=== PATIENT | male | born 1980 | race Caucasian/White ===

== ENCOUNTER 2024-04-21 04:12 | Emergency (ER) | payer BC, SELFPAY ==
[2024-04-21 04:16] VITALS: BP 160/90; PULSE 68; TEMP 36.4; O2SAT 99; BMI 27.4
--- NOTE | 2024-04-21 04:26 | ED.MALEGU1 ---
HPI - Male Genitourinary General Chief complaint: Urogenital-Male Stated complaint: FLANK PAIN, RIGHT Time Seen by Provider: 04/21/24 04:15 Source: patient Mode of arrival: walk-in Limitations: no limitations History of Present Illness HPI Narrative: 44-year-old male presents for right flank pain which started about an hour and a half ago. He was diagnosed with a kidney stone about 6 months ago and it feels similar. He states he just cannot get comfortable. The pain is severe and continuous in his right flank. Related Data Allergies Allergy/AdvReac Type Severity Reaction Status Date / Time No Known Drug Allergies Allergy Verified 04/21/24 04:22 Review of Systems ROS Narrative A ten point review of systems is negative except as noted above. Exam Narrative Exam Narrative: Nurses note and vital signs reviewed and patient is not hypoxic. General: The patient is pacing when I walk into the room Skin: Warm, dry, pallor noted. There is no rash noted. Head: Normocephalic, atraumatic Eye: Normal conjunctiva, no drainage Ears, Nose, Mouth, and Throat: oral mucosa is moist. Nares patent. Cardiovascular: Regular Rate and Rhythm Respiratory: Patient is in no distress, no accessory muscle use, lungs are clear to auscultation, no wheezing, rales or rhonchi Back: non-tender, no CVA tenderness bilaterally to percussion. GI: Soft and nontender Musculoskeletal: The patient has no evidence of calf tenderness, no pitting edema, symmetrical pulses noted bilaterally Neurological: A&O, normal speech Psychiatric: Cooperative Constitutional Vital Signs, click to edit/add: Last Vital Signs Temp 97.5 F L 04/21/24 04:16 Pulse 68 04/21/24 04:16 Resp 18 04/21/24 04:16 BP 160/90 H 04/21/24 04:16 Pulse Ox 99 04/21/24 04:16 O2 Del Method Room Air 04/21/24 04:16 Course Vital Signs Vital signs: Vital Signs Temperature 97.5 F L 04/21/24 04:16 Pulse Rate 68 04/21/24 04:16 Respiratory Rate 18 04/21/24 04:16 Blood Pressure 160/90 H 04/21/24 04:16 Pulse Oximetry 99 04/21/24 04:16 Oxygen Delivery Method Room Air 04/21/24 04:16 Temperature 97.5 F L 04/21/24 04:16 Pulse Rate 68 04/21/24 04:16 Respiratory Rate 18 04/21/24 04:16 Blood Pressure 160/90 H 04/21/24 04:16 Pulse Oximetry 99 04/21/24 04:16 Oxygen Delivery Method Room Air 04/21/24 04:16 MDM - Male Genitourinary MDM Narrative Medical decision making narrative: 5 mm kidney stone is identified. Urinalysis is pending. He was given IV Zofran and IV morphine and the patient is signed out to Dr. Carpenter at change of shift. Differential Diagnosis Differential diagnosis: Likely other (Muscle strain, kidney stone, UTI) Lab Data Attestation: I reviewed the patient's lab results. Labs: Lab Results 04/21/24 Range/Units 04:35 WBC 10.3 (4.0-11.0) 10^3/uL RBC 4.68 L (4.70-6.10) 10^6/uL Hgb 14.8 (14.0-18.0) g/dL Hct 43.5 (42.0-54.0) % MCV 92.9 (80.0-94.0) fL MCH 31.6 (25.9-34.0) pg MCHC 34.0 (29.9-35.2) g/dL RDW 11.5 (11.0-15.0) % Plt Count 280 (150-450) 10^3/uL MPV 9.1 L (9.5-13.5) fL Neut % (Auto) 54.2 (43.0-75.0) % Lymph % (Auto) 33.3 (20.5-60.0) % [place] % (Auto) 7.6 (1.7-12.0) % Eos % (Auto) 3.2 (0.9-7.0) % Baso % (Auto) 0.6 (0.2-2.0) % Neut # (Auto) 5.6 (1.4-6.5) 10^3/uL Lymph # (Auto) 3.4 (1.2-3.8) 10^3/uL [place] # (Auto) 0.8 (0.3-0.8) 10^3/uL Eos # (Auto) 0.3 (0.0-0.7) 10^3/uL Baso # (Auto) 0.1 (0.0-0.1) 10^3/uL Abs Immat Gran (auto) 0.11 H (0.00-0.03) 10^3/uL Imm/Tot Granulo (auto) 1.1 H (0.0-0.5) % Sodium 141 (136-145) mmol/L Potassium 3.8 (3.5-5.1) mmol/L Chloride 103 (98-107) mmol/L Carbon Dioxide 29.3 (21.0-32.0) mmol/L Anion Gap 12.5 BUN 17.0 (7.0-18.0) mg/dL Creatinine 1.70 H (0.70-1.30) mg/dL Est GFR ( Amer) 54 L (>=60 mL/min/1.73m^2) Est GFR (Non-Af Amer) 44 L (>=60 mL/min/1.73m^2) BUN/Creatinine Ratio 10.0 Glucose 111 H (74-106) mg/dL Calcium 9.0 (8.5-10.1) mg/dL Imaging Data CT scan - abdomen: Radiologist's impression: ITS Impressions Abdomen/Pelvis CT 04/21/24 04:49 IMPRESSION: 5 mm proximal right ureterolith with mild to moderate associated obstructive uropathy Electronically authenticated by: ROSE RODRIGUEZ Date: 04/21/2024 06:04 Discharge Plan Discharge Patient Disposition: Still a Patient
[2024-04-21] MEDS: MORPHINE SULFATE 4 MG/ML VIAL IV (04:40)
[2024-04-21] MEDS: ONDANSETRON PF 4 MG/2 ML VIAL IV (04:40)
[2024-04-21 04:41] LABS: Basophils Absolute Auto 0.1 10^3/uL (0.0-0.1); Basophils Percent Auto 0.6 % (0.2-2.0); Eosinophils Absolute Auto 0.3 10^3/uL (0.0-0.7); Eosinophils Percent Auto 3.2 % (0.9-7.0); Hematocrit 43.5 % (42.0-54.0); Hemoglobin 14.8 g/dL (14.0-18.0); Immature Granulocytes Abs Auto 0.11 10^3/uL (0.00-0.03); Immature Granulocytes Pct Auto 1.1 % (0.0-0.5); Lymphocytes Absolute Auto 3.4 10^3/uL (1.2-3.8); Lymphocytes Percent Auto 33.3 % (20.5-60.0); Mean Corpuscular Hemoglobin 31.6 pg (25.9-34.0); Mean Corpuscular Volume 92.9 fL (80.0-94.0); Mean Platelet Volume 9.1 fL (9.5-13.5); Monocytes Absolute Auto 0.8 10^3/uL (0.3-0.8); Monocytes Percent Auto 7.6 % (1.7-12.0); Neutrophils Absolute Auto 5.6 10^3/uL (1.4-6.5); Neutrophils Percent Auto 54.2 % (43.0-75.0); Platelet Count 280 10^3/uL (150-450); Red Blood Count 4.68 10^6/uL (4.70-6.10); Red Cell Distribution Width 11.5 % (11.0-15.0); White Blood Count 10.3 10^3/uL (4.0-11.0)
--- NOTE | 2024-04-21 04:49 | CT_ITS ---
[address] [address] Patient Name: JIMMY SOFIA MRN: [id number] date: 1980 Sex: M Assigned Patient Location: ER Current Patient Location: .[facility] Accession/Order Number: [id number] Exam Date: 04/21/2024 04:56 Report Date: 04/21/2024 06:04 At the request of: KUNAL AGUIRRE Procedure: CT abdomen pelvis wo con EXAMINATION: CT abdomen pelvis wo con HISTORY: Right flank pain COMPARISON: No relevant comparison available. TECHNIQUE: Axial, Coronal, and Sagittal images were created without IV contrast. Dose reduction techniques were achieved by using automated exposure control and/or adjustment of mA and/or kV according to patient size and/or use of iterative reconstruction technique. FINDINGS: LUNG BASES: No visible pulmonary or pleural disease. LIVER: No enlargement, atrophy, abnormal density, or significant focal lesion. BILIARY: No dilatation or calcification. PANCREAS: No lesion, fluid collection, ductal dilatation, or atrophy. SPLEEN: No enlargement or focal lesion. ADRENALS: No mass or enlargement. KIDNEYS: Mild asymmetric enlargement of the right kidney. Mild right hydroureteronephrosis extending to a 5 mm calcification in the proximal right ureter axial image #71. Normal left. BOWEL/MESENTERY: Minimal colonic diverticulosis. Nonobstructive bowel gas pattern. AORTA/VASCULAR: No aneurysm or dissection. RETROPERITONEUM: No mass or adenopathy. LYMPH NODES: No adenopathy. URINARY BLADDER: No visible focal wall thickening, lesion, or calculus. PELVIC ORGANS: No visible mass. Pelvic organs appropriate for patient age. ABDOMINAL WALL: No mass or hernia. BONES: No bony lesion or fracture. OTHER: Negative. CT/CT abdomen pelvis wo con IMPRESSION: 5 mm proximal right ureterolith with mild to moderate associated obstructive uropathy Electronically authenticated by: ROSE RODRIGUEZ Date: 04/21/2024 06:04
[2024-04-21 04:51] LABS: Anion Gap 12.5; Carbon Dioxide 29.3 mmol/L (21.0-32.0); Chloride 103 mmol/L (98-107); Estimated GFR (African America 54 (>=60 mL/min/1.73m^2); Estimated GFR (Non-African Ame 44 (>=60 mL/min/1.73m^2); Glucose 111 mg/dL (74-106); Potassium 3.8 mmol/L (3.5-5.1); Sodium 141 mmol/L (136-145)
[2024-04-21 07:03] VITALS: BP 154/99; PULSE 82; O2SAT 97
[2024-04-21 07:10] LABS: Bilirubin Urine NEGATIVE (NEGATIVE); Blood Urine SMALL (NEGATIVE); Clarity Urine CLEAR (CLEAR); Color Urine YELLOW (YELLOW); Glucose Urine UA NEGATIVE (NEGATIVE); Ketones Urine NEGATIVE (NEGATIVE); Leukocyte Esterase Urine NEGATIVE (NEGATIVE); Nitrite Urine NEGATIVE (NEGATIVE); Protein Urine TRACE mg/dL (NEG/TRACE); Specific Gravity Urine 1.025 (1.005-1.025); Urobilinogen Urine 0.2 EU/dL (0.2-1.0); pH Urine 6.5 (5.0-9.0)
[2024-04-21 07:17] LABS: Bacteria Urine NONE SEEN #/HPF (NONE SEEN); Cast Seen? NONE SEEN #/LPF (NONE SEEN); Crystals Seen? None Seen #/HPF (None Seen); Mucus Urine TRACE (NONE SEEN); Squamous Epithelial Cell Urine NONE SEEN #/LPF (NONE/RARE); WBC Urine 0-2 #/HPF (NONE SEEN)
== END 2024-04-21 07:37 | disposition home or self-care (01) ==
PROVIDERS: Emergency Provider Emergency Medicine; PCP Family Medicine
DX: N20.0 Calculus of kidney (principal); Z87.442 Personal history of urinary calculi
CPT/HCPCS: 36415; 74176; 80048; 81001; 85025; 96374; 96375; 99284; J2270; J2405